=== PATIENT | male | born 1985 | race Two or more races ===

== ENCOUNTER 2023-01-01 07:05 | Emergency (ER) | payer SELFPAY ==
--- NOTE | 2023-01-01 07:08 | ECG_ITS ---
Test Reason : CHEST PAIN Blood Pressure : / mmHG Vent. Rate : 069 BPM Atrial Rate : 069 BPM P-R Int : 154 ms QRS Dur : 092 ms QT Int : 392 ms P-R-T Axes : 048 040 017 degrees QTc Int : 420 ms Normal sinus rhythm Incomplete right bundle branch block Borderline ECG No previous ECGs available Referred By: Generic ED Physician Electronically Signed By:ASHOK DOMINGUEZ
[2023-01-01 07:14] VITALS: BP 131/77; PULSE 69; RESP 18; TEMP 36.7; O2SAT 99; BMI 23.2
[2023-01-01 07:37] LABS: IDNOW Serial# 08D9AD1C; Strep A Nucleic Acid Negative (Negative)
[2023-01-01 07:44] LABS: IDNOW Serial# BCCEAD1C
[2023-01-01 07:45] LABS: COVID-19 Test Negative (Negative)
--- NOTE | 2023-01-01 08:02 | ED.URI ---
HPI - URI/Sore Throat General Chief Complaint: Upper Respiratory Symptoms Stated Complaint: chest pain l side back sore throat SOB Time Seen by Provider: 01/01/23 07:56 Source: patient and other Mode of arrival: EMS Limitations: no limitations History of Present Illness HPI Narrative: 29-year-old male presents emergency department with 2 days of cough congestion and sore throat. PMH of smoker denies asthma does not take any medications. He denies sick contacts he is vaccinated for covid. NO falls injuries. He felt like he could not sleep last night due to shortness of breath. He has no previous visits here. MD elicited complaint: cough, sore throat and nasal congestion Related Data Allergies Allergy/AdvReac Type Severity Reaction Status Date / Time No Known Allergies Allergy Verified 01/01/23 07:33 Review of Systems Review of Systems: Review of systems: General: Patient denies any fever chills recent illness or falls Musculoskeletal: Denies back pain or body aches or other injuries HEENT: denies headache, runny nose, ear pain Respiratory: cough denies shortness of breath, Cardiovascular: no chest pain or palpitations : denies dysuria, frequency Abdomen: no nausea vomiting denies abdominal pain Extremities: no swelling, no pain Skin: no diaphoresis Yes all other systems are reviewed and are negative PMFSH Social History Social History Advance Directives: No Advance Directives Information Provided: No Physical Exam Vital Signs: Vital Signs: Last Vital Signs Temp 98.0 F 01/01/23 07:14 Pulse 69 01/01/23 07:14 Resp 18 01/01/23 07:14 BP 131/77 01/01/23 07:14 Pulse Ox 99 01/01/23 07:14 O2 Del Method Room Air 01/01/23 07:14 BMI result Body Mass Index 23.2 General: Well-appearing well-nourished in no signs of distress HEENT: Normocephalic atraumatic Neck: No signs of JVD, no masses no tenderness or lymphadenopathy Cardiovascular: Regular rate and rhythm Respiratory: Clear to auscultation bilaterally Abdomen: Soft nontender no masses Extremities: Normal pedal pulses no signs of edema Skin: Dry warm no rashes Back: No tenderness full ROM Medical Decision Making Medical Decision Making MDM Narrative: URI, covid flu is not around just yet and strept. He is not toxic appearing and otherwise looks well. I will give ibuprofen tylenol tessalon perles. Differential Diagnosis Differential Diagnoses: The differential diagnosis associated with the presentation includes Covid, URI, viral syndrome flu less likely. Admission/Observation Consideration of admission/observation: Escalation of care including admission/observation considered not needed patient too well appearing Lab Data MDM Lab Attestation statement: I reviewed the patient's lab results. Labs: Lab Results 01/01/23 Range/Units 07:21 COVID-19 (DARVIN) Negative (Negative) COVID-19 Clin Com See Note S. pyogenes GrpA FREEDOM Negative (Negative) Independent Historian Clinical information obtained from an independent historian. History obtained from or confirmed by: Other External Record Review No previous records to review Prescription Management I will send home on ibuprofen and tessalon perles educated to use benadryl to help with sleep. Discharge Plan Discharge Clinical Impression: Upper respiratory infection, Viral infection Patient Disposition: Home, Self-Care Instructions: Pharyngitis (ED), Upper Respiratory Infection (DC) Additional Instructions: You were seen today in the emergency department for cough sore throat. You had swabs done that were negative for strept and covid. We did send you home with tessalon perles that you can take to help your cough. You can take ibuprofen and tylenol for the body aches. If you have worsening shortness of breath, cough fever or any other concerns please return to the ED.
[2023-01-01] MEDS: Ibuprofen 400 MG TABLET PO (08:14)
[2023-01-01] MEDS: Benzonatate 100 MG CAPSULE PO (08:14)
[2023-01-01] MEDS: Acetaminophen 325 MG TABLET 650 MG PO (08:14)
== END 2023-01-01 08:38 | disposition home or self-care (01) ==
PROVIDERS: Emergency Provider Student in an Organized Health Care Education/Training Program
DX: B34.9 Viral infection, unspecified (principal); J06.9 Acute upper respiratory infection, unspecified; R07.89 Other chest pain; M54.50 Low back pain, unspecified; R05.9 Cough, unspecified; Z20.822 Contact with and (suspected) exposure to COVID-19; Z20.828 Contact with and (suspected) exposure to other viral communicable diseases; Z87.891 Personal history of nicotine dependence
CPT/HCPCS: 87635; 87651; 93005; 99283